=== PATIENT | male | born 1980 | race Caucasian/White ===

== ENCOUNTER → 2020-05-11 11:19 | Outpatient (POV) | payer MEDICARE, SELFPAY ==
[2020-05-11 12:19] VITALS: BP 130/79; PULSE 92; RESP 20; TEMP 36.1; O2SAT 95; BMI 21.5
--- NOTE | 2020-05-11 12:58 | [facility].PMCON ---
Assessment and Plan (1) Back pain Status: Chronic Category: Medical Code(s): M54.9 - Dorsalgia, unspecified (2) Degenerative joint disease (DJD) of lumbar spine Status: Chronic Category: Medical Code(s): M47.816 - Spondylosis without myelopathy or radiculopathy, lumbar region - Assessment and plan all Dx Assessment and Plan for all problems:: We will give the patient information in regards to other clinics that do medication management. Patient understands that we will not be prescribing any narcotic medications for him. He is welcome to return if he is interested in interventions in the future. Dr. Mayes has reviewed this note and agrees with this plan of care. This note was dictated using voice recognition software and may contain errors or omissions HPI - Data of Consult Consult date: 05/11/20 Requesting Physician: Jessica Solis APRN Primary Care Provider: Referral Provider, MD - Consult Narrative Reason for consult: Back pain, leg pain History of present illness: Mr. Palomo is a 40 year old male who presents today for consultation in regards to his back pain. Patient has been seen by 2 previous pain clinics and discharged due to inappropriate pill counts. Patient states he is here today for oral pain medication I discussed with him that we are interventional in nature. He is not interested in any injective or additional therapies. Patient has bilateral leg wounds that he is seeing wound care for. He rates his pain today a 7 out of 10. Patient was on [place] 7.5 mg 1 p[address]o. [address] Diop he was also seen by Dr. Fabby kelsey and given medication at 1 point. Patient would like to be given names of places that do medication management. CC: Jessica Solis APRN [facility] History I have reviewed the patient's past medical history: Yes Medical History: Reports:: Diabetes Mellitus Type 2 (uncontrolled) Denies:: Cancer, Diabetes Mellitus Type 1, MRSA *Have you ever received a pneumonia vaccine?: No *Have you received a flu vaccine this season?: No Other Surgeries: Yes: Other (right 5th toe amp) Amputation: Yes - *Social History Smoking Status: Current every day smoker Tobacco Type: cigarettes # Packs/Day (cigarettes): 1 Alcohol Intake: never *Occupational Status:: disabled Housing: house Household Members: significant other *Travel in the last 8 weeks: None Family Hx:: Non-contributory Review of Systems - Review of Systems ROS General: no recent weight change, no fever, no sleep disturbances Respiratory: no cough, no shortness of air, no recurring pulmonary infections Cardiovascular/Peripheral Vascular: No chest pain, No palpitations, no edema, no shortness of breath. Gastrointestinal: no new onset incontinence, normal bowel movements reported Genitourinary: no new onset incontinence Musculoskeletal: Back pain, leg pain Psychiatric: normal mood/ affect Neurological: [denies new onset weakness in extremities], [denies new onset balance issues] Meds Allergies Allergy/AdvReac Type Severity Reaction Status Date / Time No Known Allergies Allergy Verified 05/11/20 12:26 Objective Vital signs: Temp Pulse Resp BP Pulse Ox 97.0 F L 92 H 20 130/79 95 05/11/20 12:19 05/11/20 12:19 05/11/20 12:19 05/11/20 12:19 05/11/20 12:19 Narrative: Physical Exam General: Alert and oriented x3, no acute distress, pleasant and cooperative, [on room air] Lungs: Resps E/U, Symmetrical chest expansion, Musculoskeletal: Flexion and extension of lumbar spine somewhat guarded secondary to pain, deep tendon reflexes normal, strength in upper and lower extremities [5/5], [abnormal gait noted] Neurological: speech clear, lapidary apprentice equal, no gross sensory deficits
== END ==
PROVIDERS: Visit Provider Clinical Nurse Specialist Family Health
DX: M54.9 Dorsalgia, unspecified (principal); M47.816 Spondylosis without myelopathy or radiculopathy, lumbar region
CPT/HCPCS: 99202